=== PATIENT | male | born 1955 | race Caucasian/White ===

== ENCOUNTER 2017-05-30 06:32 | Emergency (ER) | payer SELFPAY ==
[~2017-05-30] VITALS: Ht 167.6 cm; Wt 90.0 kg
[2017-05-30 06:41] VITALS: BP 221/107; PULSE 71; RESP 20; TEMP 98.3; O2SAT 98
[2017-05-30] MEDS ORDERED: QUIN5TAB6 PO (06:53)
[2017-05-30] MEDS ORDERED: BUPR100T4 PO (06:53)
[2017-05-30] MEDS ORDERED: ASPI-516 CHEW ×2 (06:53→08:48)
[2017-05-30] MEDS ORDERED: BYST10TA2 PO (06:53)
[2017-05-30] MEDS ORDERED: SIMV20TA PO ×2 (06:53→08:48)
[2017-05-30] MEDS ORDERED: AMLO5TAB2 PO ×2 (06:53→08:48)
[2017-05-30] MEDS ORDERED: FAMO1TAB37 PO ×2 (06:53→08:48)
[2017-05-30 07:25] VITALS: RESP 16; O2SAT 98
[2017-05-30] MEDS ORDERED: SODIUM CHLORIDE 0.9% FLUSH 10 ML FLUSH IVF PRN (07:30)
[2017-05-30] MEDS ORDERED: NEBIVOLOL 10 MG TAB PO ONE (07:30)
[2017-05-30] MEDS ORDERED: amLODIPine BESYLATE 5 MG TAB PO ONE (07:30)
[2017-05-30] MEDS ORDERED: MECLIZINE HCL 25 MG TAB PO ONE (07:30)
--- NOTE | 2017-05-30 07:33 | PD ---
HPI Chief Complaint: Dizziness Time Seen by Provider: 07:18 Travel History International Travel<30 days: No Contact w/Intl Traveler<30days: No Traveled to known affect area: No History of Present Illness HPI Patient is a 61-year-old male with a history of high blood pressure possible stroke in the past presents emergency department with vertiginous symptoms with mild nausea without vomiting for the past few days particularly when he wakes up in the morning and first sits up. Denies any focalized weakness denies any visual difficulty. He states his been out of his blood pressure medicine for several months and is waiting for his insurance to kick in so he can establish with a new primary care physician. States the only medicine that he has scripts for his Bystolic but he states he has not been able to afford it. States symptoms are mild, resolved, context as above, associated sinus symptoms as above PFSH Past Medical History Depression: Yes Hypertension: Yes (bad valve) Tetanus Vaccination: < 5 Years Influenza Vaccination: No Past Surgical History Other Surgery: Yes (gland removal from a cat scratch) Social History Alcohol Use: Yes Tobacco Use: Yes (/2 PPD) Substance Use: No Allergies-Medications (Allergen,Severity, Reaction): Coded Allergies: No Known Allergies (Unverified , 05/30/17) Reported Meds & Prescriptions Reported Meds & Active Scripts Active Meclizine (Meclizine HCl) 25 Mg Tab 25 Mg PO TID PRN Bupropion HCl ER 12 HR (Bupropion HCl) 150 Mg Tab 150 Mg PO BID Quinapril HCl 40 Mg Tablet 40 Mg PO DAILY 30 Days Simvastatin 20 Mg Tab 20 Mg PO DAILY Pepcid (Famotidine) 20 Mg Tab 20 Mg PO BID Aspirin 81 Mg Chew 81 Mg CHEW DAILY 30 Days Amlodipine (Amlodipine Besylate) 5 Mg Tab 5 Mg PO DAILY Reported Bupropion HCl 100 Mg Tab 150 Mg PO HS Quinapril (Quinapril HCl) 5 Mg Tab 40 Mg PO DAILY Bystolic (Nebivolol) 10 Mg Tab 10 Mg PO DAILY Review of Systems Except as stated in HPI: all other systems reviewed are Neg Physical Exam Narrative GENERAL: Well-developed well-nourished in no obvious distress, morbidly obese and smells of cigarette smoke SKIN: Focused skin assessment warm/dry. HEAD: Atraumatic. Normocephalic. EYES: Pupils equal and round. No scleral icterus. No injection or drainage. ENT: No nasal bleeding or discharge. Mucous membranes pink and moist. NECK: Trachea midline. No JVD. CARDIOVASCULAR: Regular rate and rhythm. No murmur appreciated. RESPIRATORY: No accessory muscle use. Clear to auscultation. Breath sounds equal bilaterally. GASTROINTESTINAL: Abdomen soft, non-tender, nondistended. Hepatic and splenic margins not palpable. MUSCULOSKELETAL: No obvious deformities. No clubbing. No cyanosis. No edema. NEUROLOGICAL: Awake and alert. Cranial nerves II through XII are grossly intact and nonfocal, 5 out of 5 strength in all 4 extremities, cerebellar testing with [id number] and heel trejo testing negative, ambulates with an even narrow based gait PSYCHIATRIC: Appropriate mood and affect; insight and judgment normal. Data Data Last Documented VS Vital Signs Date Time Temp Pulse Resp B/P (MAP) Pulse Ox O2 Delivery O2 Flow Rate FiO2 05/30/17 09:07 68 16 178/98 (124) 98 05/30/17 08:19 Room Air 05/30/17 06:41 98.3 Orders Orders Electrocardiogram (05/30/17 07:24) Complete Blood Count With Diff (05/30/17 07:24) Comprehensive Metabolic Panel (05/30/17 07:24) Troponin I (05/30/17 07:24) Act Partial Throm Time (Ptt) (05/30/17 07:24) Prothrombin Time / Inr (Pt) (05/30/17 07:24) Ct Brain W/O Iv Contrast(Rout) (05/30/17 07:24) Ecg Monitoring (05/30/17 07:24) Iv Access Insert/Monitor (05/30/17 07:24) Oximetry (05/30/17 07:24) Meclizine (Antivert) (05/30/17 07:30) Sodium Chloride 0.9% Flush (Ns Flush) (05/30/17 07:30) Amlodipine (Norvasc) (05/30/17 07:30) Nebivolol (Bystolic) (05/30/17 07:30) Ed Discharge Order (05/30/17 08:51) Labs Laboratory Tests Test 05/30/17 07:45 White Blood Count 11.0 TH/MM3 Red Blood Count 5.09 MIL/MM3 Hemoglobin 15.1 GM/DL Hematocrit 44.7 % Mean Corpuscular Volume 87.9 FL Mean Corpuscular Hemoglobin 29.7 PG Mean Corpuscular Hemoglobin Concent 33.8 % Red Cell Distribution Width 12.6 % Platelet Count 278 TH/MM3 Mean Platelet Volume 8.3 FL Neutrophils (%) (Auto) 75.4 % Lymphocytes (%) (Auto) 15.5 % Monocytes (%) (Auto) 5.0 % Eosinophils (%) (Auto) 2.4 % Basophils (%) (Auto) 1.7 % Neutrophils # (Auto) 8.3 TH/MM3 Lymphocytes # (Auto) 1.7 TH/MM3 Monocytes # (Auto) 0.5 TH/MM3 Eosinophils # (Auto) 0.3 TH/MM3 Basophils # (Auto) 0.2 TH/MM3 CBC Comment DIFF FINAL Differential Comment Prothrombin Time 10.6 SEC Prothromb Time International Ratio 1.0 RATIO Activated Partial Thromboplast Time 24.9 SEC Blood Urea Nitrogen 15 MG/DL Creatinine 0.80 MG/DL Random Glucose 115 MG/DL Total Protein 7.5 GM/DL Albumin 3.5 GM/DL Calcium Level 8.7 MG/DL Alkaline Phosphatase 82 U/L Aspartate Amino Transf (AST/SGOT) 13 U/L Alanine Aminotransferase (ALT/SGPT) 24 U/L Total Bilirubin 0.3 MG/DL Sodium Level 137 MEQ/L Potassium Level 4.3 MEQ/L Chloride Level 104 MEQ/L Carbon Dioxide Level 26.5 MEQ/L Anion Gap 7 MEQ/L Estimat Glomerular Filtration Rate 99 ML/MIN Troponin I LESS THAN 0.02 NG/ML MDM Medical Decision Making Medical Screen Exam Complete: Yes Emergency Medical Condition: Yes Differential Diagnosis Vertigo, hypertensive urgency, hypertensive emergency, elevated blood pressure Narrative Course Patient room to the emergency department, given blood pressure medication at his home dosing regimen as well as meclizine, his symptoms are not returning in the emergency department, highly consistent with vertigo as it was worsened when he sat up and when he moved his head early in the morning. CT head was still obtained to look for bleeding or mass. Basic blood work sent and is reassuring. Discussed with the patient is to follow-up with his primary care physician case management is spoken with him and has given him his policy number for his insurance and he will establish. At this time he is stable for discharge no indication for further workup. Discussed return to ED criteria. Discussed smoking cessation with both him and his and the many adverse health effects of smoking has Diagnosis Primary Impression: Headache Additional Impressions: Vertigo Elevated blood pressure reading Referrals: [facility]Other Pt SpecificInfo: Prescription(s) given Scripts Meclizine (Meclizine) 25 Mg Tab 25 MG PO TID Y for VERTIGO, #20 TAB 0 Refills Prov: John Smith MD 05/30/17 Bupropion HCl ER 12 HR (Bupropion HCl ER 12 HR) 150 Mg Tab 150 MG PO BID, #60 TAB 0 Refills Prov: John Smith MD 05/30/17 Quinapril HCl (Quinapril HCl) 40 Mg Tablet 40 MG PO DAILY for 30 Days, 0 Refills Prov: John Smith MD 05/30/17 Simvastatin (Simvastatin) 20 Mg Tab 20 MG PO DAILY for Cholesterol Management, #30 TAB 0 Refills Prov: John Smith MD 05/30/17 Famotidine (Pepcid) 20 Mg Tab 20 MG PO BID, #60 TAB 0 Refills Prov: John Smith MD 05/30/17 Aspirin (Aspirin) 81 Mg Chew 81 MG CHEW DAILY for 30 Days, #30 TAB 0 Refills Prov: John Smith MD 05/30/17 Amlodipine (Amlodipine) 5 Mg Tab 5 MG PO DAILY for Blood Pressure Management, #30 TAB 0 Refills Prov: John Smith MD 05/30/17 Disposition: 01 DISCHARGE HOME Condition: Stable John Smith MD May 30, 2017 07:33
--- NOTE | 2017-05-30 07:44 | RADRPT ---
EXAM DATE/TIME: 05/30/2017 07:35 [facility] COMPARISON: No previous studies available for comparison. INDICATIONS : Dizziness. Cephalgia. RADIATION DOSE: 63.17 CTDIvol (mGy) MEDICAL HISTORY : Hypertension. SURGICAL HISTORY : None. ENCOUNTER: Initial ACUITY: 1 day PAIN SCALE: 5/10 LOCATION: cranial TECHNIQUE: Multiple contiguous axial images were obtained of the head. Using automated exposure control and adj ustment of the mA and/or kV according to patient size, radiation dose was kept as low as reasonably a chievable to obtain optimal diagnostic quality images. DICOM format image data is available electro nically for review and comparison. FINDINGS: CEREBRUM: The ventricles are normal for age. No evidence of midline shift, mass lesion, hemorrhage or acute in farction. No extra-axial fluid collections are seen. POSTERIOR FOSSA: The cerebellum and brainstem are intact. The 4th ventricle is midline. The cerebellopontine angle i s unremarkable. EXTRACRANIAL: The visualized portion of the orbits is intact. SKULL: The calvaria is intact. No evidence of skull fracture. CONCLUSION: No acute intracranial disease. Ángel Jordan MD on May 30, 2017 at 7:42 Board Certified Radiologist. This report was verified electronically.
[2017-05-30 08:08] LABS: CHLORIDE 104 MEQ/L (98-107); SODIUM (NA) 137 MEQ/L (136-145)
[2017-05-30 08:11] LABS: CALCIUM 8.7 MG/DL (8.5-10.1)
[2017-05-30 08:12] LABS: ALBUMIN 3.5 GM/DL (3.4-5.0); BICARBONATE 26.5 MEQ/L (21.0-32.0); BLOOD UREA NITROGEN 15 MG/DL (7-18); GLUCOSE,RANDOM 115 MG/DL (74-106); PROTHROMBIN TIME - PATIENT 10.6 SEC (9.8-11.6)
[2017-05-30 08:15] LABS: ALT (GPT) 24 U/L (12-78); AST (GOT) 13 U/L (15-37); GLOMERULAR FILTRATION RATE 99 ML/MIN (>89)
[2017-05-30 08:17] LABS: TOTAL BILIRUBIN ADULT 0.3 MG/DL (0.2-1.0); TOTAL PROTEIN 7.5 GM/DL (6.4-8.2)
[2017-05-30 08:18] LABS: ALKALINE PHOSPHATASE 82 U/L (45-117); AUTOMATED NEUTROPHIL # 8.3 TH/MM3 (1.8-7.7); BASOPHIL # 0.2 TH/MM3 (0-0.2); BASOPHIL % 1.7 % (0.0-2.0); EOSINOPHIL # 0.3 TH/MM3 (0-0.4); EOSINOPHIL % 2.4 % (0.0-4.0); HEMATOCRIT 44.7 % (39.0-51.0); HEMOGLOBIN 15.1 GM/DL (13.0-17.0); LYMPH % 15.5 % (9.0-44.0); LYMPHOCYTE # 1.7 TH/MM3 (1.0-4.8); MEAN CELL VOLUME 87.9 FL (80.0-100.0); MEAN CORPUSCULAR HEMOGLOBIN 29.7 PG (27.0-34.0); MEAN CORPUSCULAR HGB CONC 33.8 % (32.0-36.0); MEAN PLATELET VOLUME 8.3 FL (7.0-11.0); MONOCYTE # 0.5 TH/MM3 (0-0.9); NEUT % 75.4 % (16.0-70.0); PLATELET COUNT 278 TH/MM3 (150-450); RED BLOOD COUNT 5.09 MIL/MM3 (4.50-5.90); RED CELL DISTRIBUTION WIDTH 12.6 % (11.6-17.2)
[2017-05-30 08:19] VITALS: BP 167/91; PULSE 64; RESP 16; O2SAT 98
[2017-05-30 08:20] LABS: TROPONIN I LESS THAN 0.02 NG/ML (0.02-0.05)
[2017-05-30] MEDS ORDERED: BUPR150T5 PO (08:48)
[2017-05-30] MEDS ORDERED: QUIN40TA22 PO (08:48)
[2017-05-30] MEDS ORDERED: MECL-62 PO (08:49)
[2017-05-30 09:07] VITALS: BP 178/98
--- NOTE | 2017-05-30 20:17 | EKG ---
Date Performed: 05/30/2017 Time Performed: 07:51:02 PTAGE: 61 years EKG: Sinus rhythm MODERATE VOLTAGE CRITERIA FOR LVH, CONSIDER NORMAL VARIANT NONSPECIFIC ST & T-WAVE ABNORMALITY TATE GRIFFIN ECG NO PREVIOUS TRACING DOCTOR: Jesús Judge Interpretating Date/Time 05/30/2017 20:14:33
== END 2017-05-30 09:10 | disposition home or self-care (01) ==
LOC: PHED 06:32
DX: R05 Cough (principal); R42 Dizziness and giddiness; I10 Essential (primary) hypertension; R94.31 Abnormal electrocardiogram [ECG] [EKG]; F32.9 Major depressive disorder, single episode, unspecified; Z79.82 Long term (current) use of aspirin
CPT/HCPCS: 70450; 80053; 84484; 85025; 85610; 85730; 93005; 99285